=== PATIENT | female | born 1985 | race Caucasian/White ===

== ENCOUNTER 2017-01-03 11:17 | Inpatient (IN) | payer OTHER ==
[2017-01-03] MEDS ORDERED: Lactated Ringer's 1,000 ML IV SCH (12:00)
[2017-01-03 12:44] LABS: BASO % 0.2 % (0.0-2.0); EOS % 0.4 % (0.0-4.0); HEMATOCRIT 35.9 % (34.0-47.0); LYMPH # 2.1 K/uL (1.0-4.3); MEAN CELL VOLUME 73.4 fL (81.0-99.0); MEAN CORPUSCULAR HEMOGLOBIN 23.7 pg (27.0-31.0); MEAN CORPUSCULAR HGB CONC 32.3 g/dL (33.0-37.0); MEAN PLATELET VOLUME 10.9 fL (7.2-11.7); MONO # 0.6 K/uL (0.0-0.8); MONO % 4.6 % (0.0-10.0); NRBC % 0.2 % (0.0-2.0); RED CELL DISTRIBUTION WIDTH 15.4 % (11.5-14.5)
[2017-01-03 12:52] LABS: INR 0.9
[2017-01-03 12:56] LABS: RBC URINE 7 /hpf (0-3); URINE BILIRUBIN NEGATIVE (NEGATIVE); URINE BLOOD 2+ (NEGATIVE); URINE COLOR Yellow (YELLOW); URINE GLUCOSE (UA) NORMAL (Normal); URINE KETONE 2+ mg/dL (NEGATIVE); URINE LEUKOCYTE ESTERASE NEG Leu/uL (Negative); URINE PROTEIN NEGATIVE (NEGATIVE); URINE UROBILINOGEN NORMAL mg/dL (0.2-1.0); WBC URINE 4 /hpf (0-5)
[2017-01-03 12:58] LABS: CHLORIDE 104 mmol/L (98-107)
[2017-01-03 12:59] LABS: POTASSIUM 3.9 mmol/L (3.6-5.2); SODIUM 132 mmol/L (132-148)
[2017-01-03 13:01] LABS: CARBON DIOXIDE 18 mmol/L (22-30); GFR AFRICAN-AMERICAN > 60
[2017-01-03 13:02] LABS: ALB/GLOB RATIO 1.5 (1.0-2.1); ALKALINE PHOSPHATASE 268 U/L (38-126); ALT/SGPT 29 U/L (9-52); AST/SGOT 21 U/L (14-36); BILIRUBIN,TOTAL 1.1 mg/dL (0.2-1.3); BLOOD UREA NITROGEN 8 mg/dL (7-17); CALCIUM 9.3 mg/dl (8.6-10.4); GLUCOSE,RANDOM 91 mg/dL (65-105); TOTAL PROTEIN 6.7 g/dL (6.3-8.3)
[2017-01-03] MEDS ORDERED: Oxytocin 30 UNIT 30 UNITS/500 ML BAG IV ONE (13:25)
[2017-01-03] MEDS ORDERED: Oxytocin 30 UNIT 30 UNITS/500 ML BAG IV SCH ×2 (13:30→13:44)
[2017-01-03] MEDS ORDERED: Dextrose 5%/Lactated Ringer's 1,000 ML IV SCH (14:15)
--- NOTE | 2017-01-03 14:26 | OBHP ---
Datetime: 01/03/2017 12:20 IP Adm Impression: Term, intrauterine ; Active labor IP Admit Plan: Admit to unit; Initiate labor protocol Admit Comment, IP Provider: Patient is a 31 year old at 39 weeks and 6 days with LMP of 04/02/19 17 who presents to [facility] with complaints of contractions that started at 4:00am this morning, with eac h contractions being 15 mins apart and progressed to 5 minutes aparyt at 9:00am. Patient admints to f etal movement, bloody show, but denies leakage of fluid, vaginal bleeding. 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 Admit to Labor and Delivery 2. Admission orders 3. Continous external monitoring and TOCO 4. Expectant management 5. Plans discussed with attending Brittany Bradford, PGY-1, DO Dr Pineda saw the pateint and agrees Extremities - PN: Normal Abdomen - PN: Normal Lungs - PN: Normal Heart - PN: Normal HEENT - PN: Normal General - PN: Normal FHR - Baseline A Provider: 130 Contraction Comments Provider: q1-4 Comments, ACOG Physical Exam: Physical Examination: Gen: NAD, AAOx3 Cardio: RRR, Normal S1, S2 Pulm: CTA b/l Abdomen: Soft, Gravid Ext: No cyanosis, no edema and no clubbing Cervical Examination" 2-3cm/80%/-2 (11:34am) EFM: 150, +ACCELERATIONS TOCO: Irregular IP Hx Assessment: The History has been Reviewed and is Current EGA AdmitDate IP: 39.6 Vital Signs Provider: Reviewed; Within Normal Limits IP Chief Complaint: Uterine contractions NICHD Variability Prov Fetus A: Moderate 6-25bpm NICHD Accel Fetus A IP Provider: 15X15 FHR Category Provider Fetus A: Category I Dilatation, Provider: 3 Effacement, Provider: 80 Station, Provider: -1
[2017-01-03] MEDS ORDERED: Bupivacaine 0.125%/FentaNYL 200 ML EPI ONE (15:51)
[2017-01-03] MEDS ORDERED: Bupivacaine HCl 0.25% PF (10 ml) Inj ONE (16:33)
--- NOTE | 2017-01-03 17:26 | OBPN ---
Datetime: 01/03/2017 17:23 IP Procedures: Sterile Vag Exam Contraction Comments Provider: q1-4 FHR - Baseline A Provider: 130 IP Progress Note Comment: pt was examined at bed side ve 3/80/-2 srom cont pitocin fs nticipate dr faulkner aware Vital Signs Provider: Reviewed; Within Normal Limits NICHD Accel Fetus A IP Provider: 15X15 FHR Category Provider Fetus A: Category I NICHD Variability Prov Fetus A: Moderate 6-25bpm Dilatation, Provider: 3 Effacement, Provider: 80 Station, Provider: -1
[2017-01-03] MEDS ORDERED: Oxycodone/Acetaminophen 5/325 mg Tab PO PRN (20:53)
[2017-01-03] MEDS ORDERED: Benzocaine/Menthol 20%-0.5% Topical Spray (60 ml) TOP PRN (20:54)
--- NOTE | 2017-01-03 20:58 | OBPN ---
Datetime: 01/03/2017 20:55 IP Progress Impression: Normal progression of labor IP Procedures: Sterile Vag Exam Contraction Comments Provider: q1-4 FHR - Baseline A Provider: 130 IP Progress Note Comment: pt was examined at bed side ve 9/100/[address] faulkner aware Vital Signs Provider: Reviewed; Within Normal Limits NICHD Variability Prov Fetus A: Moderate 6-25bpm Dilatation, Provider: 9 Effacement, Provider: 100 Station, Provider: 0
[2017-01-03] MEDS ORDERED: Lidocaine 2% Inj (20ml) ONE (22:43)
[2017-01-04 08:42] LABS: HEMATOCRIT 30.8 % (34.0-47.0); MEAN CELL VOLUME 74.3 fL (81.0-99.0); MEAN CORPUSCULAR HEMOGLOBIN 23.3 pg (27.0-31.0); MEAN CORPUSCULAR HGB CONC 31.4 g/dL (33.0-37.0); RED CELL DISTRIBUTION WIDTH 15.3 % (11.5-14.5); WHITE BLOOD COUNT 25.5 K/uL (4.8-10.8)
--- NOTE | 2017-01-04 15:56 | OBPPN ---
Datetime: 01/04/2017 15:52 PP Pain Prov: Within normal limits PP Breasts Prov: Normal PP Heart Prov: Normal PP Lungs Prov: Normal PP Abdomen/Uterus Prov: Normal PP Lochia Prov: Normal PP Vulva/Perineum Prov: Normal PP CVA Tenderness Prov: Normal PP Extremities Prov: Normal PP Progress Prov: Normal PP Impression Prov: Normal progression PP Plan Prov: Continue present management PP Progress Note Prov: PPD #1 No C/O VS Stable Abdomen Soft HOF -2 Perineum intact IP PP Procedures: None
--- NOTE | 2017-01-04 15:58 | OBDCSUM ---
Datetime: 01/04/2017 15:54 Discharged to, Provider: Home Follow up at, Provider: Dr. Hernandez Disch Instr Activity: Normal activity; Bedrest; May be up for meals; May Shower Disch Instr Diet: Regular Discharge Instructions, Provider: Routine instructions given Follow up in weeks, Provider: 4 weeks Disch Activity Restrictions: No exercising; No lifting; No driving; Minimize walking; Minimize stair -climbing; No sexual activity; Nothing in vagina - [place], tampons, douche Discharge Comment, Provider: Home in AM if stable Contraception after Delivery: Not Planning to Use
--- NOTE | 2017-01-04 15:58 | OBDS ---
DELIVERY PERSONNEL Nurse Lasting Room Machine Operator Certified: N/A Delivery Doctor: Sharmin Hernandez MD Scrub Nurse: N/Javon Aircraft Landing Gear Inspector: Karen Keen RN Anesthesiologist: Daryn Blue MD Supervisor Customer Records Division: [facility] Resident: Ramesh MATERNAL INFORMATION Delivery Anesthesia: Epidural Medications in Delivery: PITOCIN Estimated Blood Loss (ml): 300 Placenta Cultured: No Maternal Complications: None LABOR SUMMARY EDC: 01/04/2017 00:00 No. Babies in Womb: 1 Attempted: No Labor Anesthesia: Epidural LABOR INFORMATION Onset of Labor: 01/03/2017 12:00 Complete Dilatation: 01/03/2017 21:45 Oxytocin: Augmentation Group B Beta Strep: Negative (Annotations: 12/02/16) Steroids Given: None Reason Steroids Not Administered: Not Applicable MEMBRANES Membranes Rupture Method: Spontaneous Rupture of Membranes: 01/03/2017 17:05 Length of Rupture (hrs): 5.77 Amniotic Fluid Color: Clear Amniotic Fluid Amount: Moderate Amniotic Fluid Odor: Normal STAGES OF LABOR Stage 1 hrs: 9 Stage 1 min: 45 Stage 2 hrs: 1 Stage 2 min: 6 Stage 3 hrs: 0 Stage 3 min: 7 Total Time in Labor hrs: 10 Total Time in Labor min: 58 VAGINAL DELIVERY Episiotomy: Left Mediolateral Laceration Extension: N/A Laceration Type: None Laceration Repair: Yes Initial Vag Sponge Count: 10+1LAP Final Vag Sponge Count: 10+1LAP Initial Vag Sharps Count: 0 Final Vag Sharps Count: 4 Sponge Count Correct: Yes; Vaginal Sweep Performed Sharps Count Correct: Yes BABY A INFORMATION Delivery Date/Time: 01/03/2017 22:51 Method of Delivery: Vaginal Born in Route : No : N/A Forceps: N/A Vacuum Extraction: N/A Shoulder Dystocia : No SHOULDER DYSTOCIA BABY A Delivery Date/Time: 01/03/2017 22:51 PRESENTATION/POSITION BABY A Presentation: Cephalic Cephalic Presentation: Vertex Vertex Position: Left Occipital Anterior Breech Presentation: N/A PLACENTA INFORMATION BABY A Placenta Delivery Time : 01/03/2017 22:58 Placenta Method of Delivery: Spontaneous Placenta Status: Delivered SCORES BABY A Heart Rate 1 min: >100 bpm Resp Effort 1 min: Good Cry Reflex Irritability 1 min: Cough or Sneeze or Pulls Away Muscle Tone 1 min: Active Motion Color 1 min: Body Brusly, Extremities Blue SCORE 1 MIN: 9 Heart Rate 5 min: >100 bpm Resp Effort 5 min: Good Cry Reflex Irritability 5 min: Cough or Sneeze or Pulls Away Muscle Tone 5 min: Active Motion Color 5 min: Body Brusly, Extremities Blue SCORE 5 MIN: 9 INFANT INFORMATION BABY A Gestational Age at Delivery: 38.6 Gestational Status: Term Outcome : Liveborn Condition : Stable Sex: Female IDENTIFICATION/MEDS BABY A ID Band Number: [id number] ID Band Location: Left Leg; Left Arm Sensor Applied: Yes Sensor Number: [id number] Sensor Location : Cord Clamp WEIGHT/LENGTH BABY A Infant Birthweight (gms): 2915 Weight (lb): 6 Weight (oz): 7 Infant Length Inches: 18.50 Length cms: 47.0 CORD INFORMATION BABY A No. Cord Vessels: 3 Nuchal Cord : Around Neck x1, Loose Cord Blood Taken: Yes Infant Suction: Mouth; Nose ASSESSMENT BABY A Complications: None Physical Findings at Delivery: Within Normal Limits Respirations: Appears Normal Tube Drawing Supervisor/ALS Called : No Transferred To: Remains with Mother
[2017-01-05 09:02] LABS: BASO # 0.1 K/uL (0.0-0.2); BASO % 0.4 % (0.0-2.0); EOS # 0.3 K/uL (0.0-0.7); EOS % 1.5 % (0.0-4.0); LYMPH % 16.1 % (20.0-40.0); MEAN CELL VOLUME 74.2 fL (81.0-99.0); MEAN CORPUSCULAR HEMOGLOBIN 23.2 pg (27.0-31.0); MEAN CORPUSCULAR HGB CONC 31.3 g/dL (33.0-37.0); MEAN PLATELET VOLUME 11.5 fL (7.2-11.7); MONO % 5.2 % (0.0-10.0); NRBC % 0.1 % (0.0-2.0); RED CELL DISTRIBUTION WIDTH 15.2 % (11.5-14.5); WHITE BLOOD COUNT 18.4 K/uL (4.8-10.8)
[2017-01-05 10:22] VITALS: BP 101/71; PULSE 80; RESP 18; TEMP 97.8; O2SAT 100
[2017-01-05] MEDS ORDERED: Influenza Vaccine 60 mcg/0.5 mL SYR (4YR UP) IM ONE (13:00)
== END 2017-01-05 15:35 | disposition home or self-care (01) | DRG 775 ==
LOC: C.EROB 11:17 → C.4D 11:51 → C.4M 01-04 01:00
PROVIDERS: ADMIT Obstetrics & Gynecology Gynecology; ATTEND Obstetrics & Gynecology Gynecology
PROC: 10E0XZZ Delivery of Products of Conception, External Approach (ICD-10-PCS; principal; 2017-01-03)
PROC: 0W8NXZZ Division of Female Perineum, External Approach (ICD-10-PCS; 2017-01-03)
DX: O24.420 Gestational diabetes mellitus in childbirth, diet controlled (principal); O99.02 Anemia complicating childbirth; O69.81X0 Labor and delivery complicated by cord around neck, without compression, not applicable or unspecified; Z37.0 Single live birth; Z3A.39 39 weeks gestation of pregnancy; Z83.3 Family history of diabetes mellitus